=== PATIENT | male | born 1995 | race Caucasian/White ===

== ENCOUNTER 2016-03-12 19:51 | Emergency (ER) | payer SELFPAY ==
[2016-03-12 20:03] VITALS: BP 109/45
--- NOTE | 2016-03-12 20:34 | UC ---
Skin Complaint HPI - HPI Summary HPI Summary: 20 year old male patient presents with a wooden foreign body in the plantar aspect of his left great toe. Patient was walking on a wooded floor around 1730 today, partially removed the splinter but believes he has retained some of the foreign object. - History of Current Complaint Chief Complaint: UCForeignBody Time Seen by Provider: 03/12/16 20:19 Stated Complaint: FB IN TOE Hx Obtained From: Patient Onset/Duration: Sudden Onset Location: Discrete Aggravating: Touch Alleviating: Nothing Associated Signs & Symptoms: Positive: Negative Related History: Foreign Body - Wooden splinter - Allergy/Home Medications Allergies/Adverse Reactions: Allergies Allergy/AdvReac Type Severity Reaction Status Date / Time Amoxicillin Allergy Rash Verified 03/12/16 20:05 Penicillins Allergy Hives Verified 03/12/16 20:05 Home Medications: Home Medications NK [No Home Medications Reported] 03/12/16 [History Confirmed 03/12/16] Review of Systems Constitutional: Negative Skin: Other - Foreign body in the left first plantar toe Eyes: Negative ENT: Negative Respiratory: Negative Cardiovascular: Negative Gastrointestinal: Negative Genitourinary: Negative Motor: Negative Neurovascular: Negative Musculoskeletal: Negative Neurological: Negative Psychological: Negative All Other Systems Reviewed And Are Negative: Yes PMH/Surg Hx/FS Hx/Imm Hx Previously Healthy: Yes Endocrine History Of: Denies: Diabetes, Thyroid Disease, Hyperthyroidism, Hypothyroidism, Dyslipidemia Cardiovascular History Of: Denies: Cardiac Disorders, Hypertension, Pacemaker/ICD, Myocardial Infarction , Congestive Heart Failure, Atrial Fibrillation, Deep Vein Thrombosis, Bleeding Disorders Respiratory History Of: Reports: Asthma - and seasonal allergies GI/ History Of: Denies: Gastroesophageal Reflux, Kidney Stones Neurological History Of: Denies: TIA, CVA, Dementia, Seizures, Migraine Psychological History Of: Denies: Anxiety, Depression, Bipolar Disorder, Schizophrenia, Post Traumatic Stress Disorder - Surgical History Surgical History: Yes Surgery Procedure, Year, and Place: hernia - Family History Known Family History: Positive: None - Social History Occupation: [employer] Alcohol Use: None Substance Use Type: None Smoking Status (MU): Never Smoked Tobacco Have You Smoked in the Last Year: No Physical Exam Triage Information Reviewed: Yes Appearance: Well-Appearing, No Pain Distress Vital Signs: Initial Vital Signs Temp 98.4 F 03/12/16 20:01 Pulse 57 03/12/16 20:01 Resp 16 03/12/16 20:01 BP 109/45 03/12/16 20:01 Pulse Ox 100 03/12/16 20:01 Vital Signs Reviewed: Yes Eye Exam: Normal Eyes: Positive: Conjunctiva Clear ENT Exam: Normal ENT: Positive: Normal ENT inspection, Hearing grossly normal, Pharynx normal, TMs normal Dental Exam: Normal Neck: Positive: Supple, Nontender, No Lymphadenopathy Respiratory: Positive: Chest non-tender, Lungs clear, Normal breath sounds Cardiovascular: Positive: RRR, No Murmur, Pulses Normal Abdomen Description: Positive: Nontender, No Organomegaly, Soft Bowel Sounds: Positive: Present Musculoskeletal: Positive: Strength Intact, ROM Intact, Other: - Wood foreign body removed with splinter forceps, patient tolerated well Neurological Exam: Normal Neurological: Positive: Alert, Muscle Tone Normal Psychological Exam: Normal Skin Exam: Other - Wooden foreign body left first toe, removed with splinter forceps on exam. Pt chris well. Course/Dx - Diagnoses Provider Diagnoses: Removal of foreign body (wood splinter) from left great toe , plantar surface Discharge - Discharge Plan Condition: Stable Disposition: HOME Patient Education Materials: Soft Tissue Foreign Body (ED) Referrals: [facility] [Medical Doctor] - If Needed Additional Instructions: As discussed, look out for signs of infection such as redness (also on the top of the foot), swelling, pain, red streaking, or discharge. May soak the foot four times a day in warm soapy water for the next few days.
== END 2016-03-12 20:54 | disposition home or self-care (01) ==
LOC: UCEAST 19:51
DX: S90.452A Superficial foreign body, left great toe, initial encounter (principal); W45.8XXA Other foreign body or object entering through skin, initial encounter; Y93.9 Activity, unspecified; Y92.9 Unspecified place or not applicable; Z88.0 Allergy status to penicillin
CPT/HCPCS: 99201; G0463